=== PATIENT | male | born 1950 | race Caucasian/White ===

== ENCOUNTER 2016-08-08 19:24 | Emergency (ER) | payer OTHER ==
[~2016-08-08] VITALS: Ht 172.7 cm; Wt 77.3 kg
[2016-08-08 19:27] VITALS: BP 141/92; PULSE 67; RESP 18; O2SAT 97
--- NOTE | 2016-08-08 19:28 | ED.REPORT ---
HPI-Extremity Problem Upper Date of Service Aug 08, 2016 ED Provider: Ben Gore MD This is a 66 year old male presenting to the emergency department complaining of left shoulder pain that began just prior to arrival. 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 Reports painful range of motion. Denies loss of sensation, numbness or tingling, or any other injuries at this time. Nursing Notes Stated Complaint: L SHOULDER PAIN Chief Complaint: Extremity Trauma Nursing Notes Reviewed: Yes Allergies: Coded Allergies: No Known Allergies (Unverified , 08/08/16) General Time Seen by MD: 19:27 Chief Complaint Shoulder injury left Hx Obtained From: Patient Arrived By: Walk-in Onset Occurred: Just prior to arrival Symptom Duration: Since onset Severity: Current: Mild Pertinent Negative: Pt denies other symptoms Recent Healthcare: No recent doctor visit, No recent hospitalization Similar Sx Previous: No Past Medical History Past Medical History Denies Past Surgical History Denies Ambulatory Status Independent Review of Systems Constitutional: Denies: Chills, Fever Musculoskeletal: Reports: Joint pain, Denies: Back pain, Extremity pain, Extremity swelling, Joint swelling, Neck pain Neurologic: Denies: Headache Complete sys rev & neg: except as marked. Physical Exam Initial Vital Signs Vital Signs (First) Date Time Temp Pulse Resp B/P Pulse Ox O2 Delivery O2 Flow Rate FiO2 08/08/16 19:27 36.6 67 18 141/92 97 Room Air - Initial VS: Reviewed General/Constitutional: Well-developed, Well-nourished Head / Eyes: Atraumatic, Normocephalic, PERRL ENT: Mucous membranes moist, Conjunctiva normal, No scleral icterus Neck: Supple, Non-tender, Full range of motion Respiratory: Breath sounds normal, Clear to auscultation, No respiratory distress Cardiovascular: Regular rate & rhythm, Heart sounds normal, Intact distal pulses Abdomen / GI: Soft, Non-tender, No guarding, No rebound, No distention Lower Extremities: Vascular intact, Neuro intact, No swelling, No tenderness Skin: Warm, Dry, No cyanosis Neurologic: Alert, Oriented, Nonfocal Psychiatric: Mood/affect normal, Behavior normal, Normal thought content Upper Extremity / MS: Neurologic intact, Vascular intact Tenderness to superior aspect of L shoulder. Bony prominance that is assymetric at the left acromioclavicular region. Some pain with AV duction of L shoulder past 90 degrees. Interpretation & Diagnostics X-RAY LEFT SHOULDER IMPRESSION: Acromioclavicular degenerative narrowing. High riding appearance of the humeral head is also noted, which can be indicative of rotator cuff pathology. Dictated by: Myrna Mike M.D. on 08/08/2016 at 20:18 Approved by: Myrna Mike M.D. on 08/08/2016 at 20:19 Re-Eval/Medical Decision Med Decision/Clinical Course This is a 66 year old male presenting to the emergency department complaining of left shoulder pain that began just prior to arrival. 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 Reports painful range of motion. Denies loss of sensation, numbness or tingling, or any other injuries at this time. Emergency Department patient is afebrile stable vital signs and examination of the above. Plain films demonstrate no acute fracture. Patient is neurovascularly intact. He seems to have some limitation to abduction past 90 I suspect that he has greenish shoulder impingement syndrome. He started on NSAIDs which he will continue to take. He will do range of motion exercises and apply ice packs. He will follow up with his primary care physician. Follow -up and return precautions were reviewed in detail and he was discharged in good condition. Counseled Regarding: Diagnosis, Lab results, Need for follow-up, When/why to return to ED Discharge & Departure Impression: Primary Impression: Shoulder sprain Encounter type: initial encounter Shoulder sprain type: unspecified sprain Laterality: left Qualified Code: S43.402A - Unspecified sprain of left shoulder joint, initial encounter Additional Impression: Shoulder impingement syndrome Laterality: left Qualified Code: M75.42 - Impingement syndrome of left shoulder Disposition: Home Discharge Condition All VS Reviewed: Yes Condition: Stable Patient Instructions: Shoulder Sprain (ED) Additional Instructions: Thank you for seeking care at emergency room. It is difficult for us to make definitive diagnoses in the ED but we believe that you are experiencing a shoulder sprain.Take ibuprofen for pain control. Ice your shoulder and be sure to stay mobile. Our primary goal today in the ED was to evaluate you for any life-threatening conditions. Your evaluation was reassuring. You should follow-up with orthopedics for further evaluation with persistent or worsening pain or swelling. You should return to the ED immediately if you develop worsening pain, swelling , fevers, vomiting, cough, shortness of breath, chest pain, lightheadedness, weakness or any other concerning signs or symptoms. Thank you for letting us partake in your care today. Referrals: Maninder Schaefer MD Scribe Attestation Portions of this note were transcribed by Adriana Rock. I, Dr. Gore personally performed the history, physical exam and medical decision-making; I reviewed and confirmed the accuracy of the information in the transcribed note. Signed by: behzad Sanford. 08/08/2016, 23:30. Ben Gore MD Aug 08, 2016 19:28 ADRIANA ROCK Aug 08, 2016 19:30
--- NOTE | 2016-08-08 20:21 | DRSVH ---
PROCEDURE: X-RAY LEFT SHOULDER, MINIMUM TWO VIEWS ([id number]) INDICATIONS: pushing a gurney, heard a pop TECHNIQUE: 3 views of the shoulder were acquired. COMPARISON: None. FINDINGS: Bones: No fractures or dislocations. No suspicious bony lesions. Visualized ribs appear intact. A cromioclavicular degenerative narrowing is present. Mild high riding appearance is present of the hum eral head. Both are unchanged. Soft tissues: No suspicious soft tissue calcifications. IMPRESSION: Acromioclavicular degenerative narrowing. High riding appearance of the humeral head is a lso noted, which can be indicative of rotator cuff pathology. Dictated by: Myrna Mike M.D. on 08/08/2016 at 20:18 Approved by: Myrna Mike M.D. on 08/08/2016 at 20:19
[2016-08-08 20:51] VITALS: BP 130/80; PULSE 64; RESP 20; O2SAT 98
== END 2016-08-08 20:52 | disposition home or self-care (01) ==
LOC: SED 19:24
DX: S43.402A Unspecified sprain of left shoulder joint, initial encounter (principal); M75.42 Impingement syndrome of left shoulder; X50.1XXA Overexertion from prolonged static or awkward postures, initial encounter; Y93.89 Activity, other specified; Y92.239 Unspecified place in hospital as the place of occurrence of the external cause; Y99.0 Civilian activity done for income or pay